=== PATIENT | female | born 1980 | race African-American/Black ===

== ENCOUNTER 2022-10-28 14:41 | Emergency (ER) | payer OTHER ==
[~2022-10-28] VITALS: Ht 165.1 cm; Wt 97.5 kg
[2022-10-28 15:10] VITALS: O2SAT 97
[2022-10-28] MEDS ORDERED: PRED50TA PO (16:03)
[2022-10-28] MEDS ORDERED: predniSONE 50 MG TABLET ONE (16:08)
[2022-10-28] MEDS ORDERED: predniSONE 50 MG TABLET PO ONE (16:15)
== END 2022-10-28 16:24 | disposition home or self-care (01) ==
LOC: ER 14:48
DX: S39.012A Strain of muscle, fascia and tendon of lower back, initial encounter (principal); M48.061 Spinal stenosis, lumbar region without neurogenic claudication; Z79.899 Other long term (current) drug therapy; X58.XXXA Exposure to other specified factors, initial encounter; Y93.89 Activity, other specified; Y92.89 Other specified places as the place of occurrence of the external cause; Y99.8 Other external cause status
CPT/HCPCS: 99283; J7512; A4663

== ENCOUNTER 2023-03-11 13:08 | Emergency (ER) | payer OTHER ==
[~2023-03-11] VITALS: Ht 165.1 cm; Wt 90.7 kg
[~2023-03-11 13:08] MED LIST: PRED50TA PO
[2023-03-11] MEDS ORDERED: predniSONE 50 MG TABLET ONE (14:26)
[2023-03-11] MEDS ORDERED: predniSONE 10 MG TABLET ONE (14:26)
[2023-03-11] MEDS ORDERED: IPRATROPIUM BROMIDE 0.5 MG/2.5 ML NEBU NEB ONE (14:30)
[2023-03-11] MEDS ORDERED: ALBUTEROL SULFATE 2.5 MG/3 ML NEBU ONE (14:30)
[2023-03-11] MEDS ORDERED: predniSONE 10 MG TABLET PO ONE (14:30)
[2023-03-11] MEDS ORDERED: ALBUTEROL SULFATE 2.5 MG/3 ML NEBU NEB ONE (14:30)
[2023-03-11] MEDS ORDERED: IPRATROPIUM BROMIDE 0.5 MG/2.5 ML NEBU ONE (14:30)
[2023-03-11 14:35] VITALS: O2SAT 96
[2023-03-11 14:45] VITALS: O2SAT 100
[2023-03-11 14:56] LABS: BASOPHILS # (AUTO) 0.1 K/UL (0.0-0.2); BASOPHILS % (AUTO) 1.4 % (0.0-2.0); EOSINOPHILS # (AUTO) 0.1 K/uL (0.0-0.7); HEMATOCRIT 39.4 % (31.2-41.9); LYMPHOCYTES # (AUTO) 2.8 K/uL (0.8-4.8); LYMPHOCYTES % (AUTO) 39.5 % (20.5-51.5); MEAN CORPUSCULAR HEMOGLOBIN 27.7 uug (24.7-32.8); MEAN CORPUSCULAR HGB CONC 33 g/dL (32.3-35.6); MEAN CORPUSCULAR VOLUME 84.1 fL (75.5-95.3); MONOCYTES # (AUTO) 0.6 K/uL (0.1-1.30); MONOCYTES % (AUTO) 7.8 % (0.0-11.0); NEUTROPHILS # (AUTO) 3.6 K/uL (1.8-8.9); NEUTROPHILS % (AUTO) 50.3 % (38.5-71.5); PLATELET COUNT (AUTO) 374 K/uL (179-408); RED BLOOD CELL COUNT(AUTO) 4.68 MIL/uL (3.63-4.92); RED CELL DISTRIBUTION WIDTH 14.2 % (12.3-17.7); WHITE BLOOD COUNT (AUTO) 7.2 K/uL (3.8-11.8)
[2023-03-11 15:16] LABS: ALANINE AMINOTRANSFERASE 54 U/L (14-59); ALBUMIN 3.6 g/dL (3.4-5.0); ALKALINE PHOSPHATASE 109 U/L (50-136); ASPARTATE AMINOTRANSFERASE 36 U/L (15-37); BILIRUBIN,DIRECT 0.1 mg/dL (0.0-0.2); BILIRUBIN,TOTAL 0.4 mg/dL (0.2-1.0); CALCIUM 9.4 mg/dL (8.5-10.1); CARBON DIOXIDE 27 mmol/L (21-32); CHLORIDE 101 mmol/L (98-107); CREATININE 0.7 mg/dL (0.6-1.3); GLUCOSE 97 mg/dL (74-106); POTASSIUM 3.9 mmol/L (3.5-5.1); SODIUM SERUM 139 mmol/L (136-145); TOTAL PROTEIN, SERUM 8.6 g/dL (6.4-8.2); UREA NITROGEN, BLOOD 14 mg/dL (7-18)
[2023-03-11 15:20] LABS: NT-PRO BNP < 5 pg/mL (0-125)
[2023-03-11 15:21] LABS: DIFFERENTIAL COMMENT 1
[2023-03-11] MEDS ORDERED: ALBU8.5H8 INH (16:10)
[2023-03-11] MEDS ORDERED: PRED50TA PO (16:10)
[2023-03-11] MEDS ORDERED: PROM118S5 PO (16:10)
[2023-03-11 16:30] VITALS: O2SAT 95
[2023-03-11] MEDS ORDERED: GUAIFENESIN/DEXTROMETHORPHAN 5 ML UDC PO ONE (16:45)
[2023-03-11] MEDS ORDERED: GUAIFENESIN/DEXTROMETHORPHAN 5 ML UDC ONE (16:46)
== END 2023-03-11 16:53 | disposition home or self-care (01) ==
LOC: ER 13:14
DX: J45.901 Unspecified asthma with (acute) exacerbation (principal); Z79.899 Other long term (current) drug therapy; Z20.822 Contact with and (suspected) exposure to COVID-19
CPT/HCPCS: 36415; 71045; 84484; 85025; 93005; A4606; A4663; J3590; J7512

== ENCOUNTER 2023-11-05 16:44 | Emergency (ER) | payer MEDICAID, OTHER ==
[~2023-11-05] VITALS: Ht 162.6 cm; Wt 104.3 kg
[~2023-11-05 16:44] MED LIST changes: +ALBU8.5H8 INH; +PROM118S5 PO
[2023-11-05] MEDS ORDERED: FLAS1EAC2 TP (18:06)
[2023-11-05] MEDS ORDERED: FLAS1KIT2 TP (18:06)
[2023-11-05 19:05] VITALS: BP 140/58; O2SAT 98
== END 2023-11-05 18:30 | disposition home or self-care (01) ==
LOC: ER 16:50
DX: L02.413 Cutaneous abscess of right upper limb (principal); E88.810 Metabolic syndrome; Z79.52 Long term (current) use of systemic steroids; Z79.1 Long term (current) use of non-steroidal anti-inflammatories (NSAID)
CPT/HCPCS: A4606; A4663